=== PATIENT | male | born 1995 | race Two or more races ===

== ENCOUNTER 2022-03-02 20:56 | Emergency (ER) | payer OTHER ==
[~2022-03-02] VITALS: Ht 170.2 cm; Wt 77.0 kg
[2022-03-02 21:42] LABS: Basophils # (auto) 0 10 ^3/uL (0-0.2); Basophils % (auto) 0.5 % (0.0-2.0); Eosinophils # (auto) 0.1 10 ^3/uL (0-0.8); Eosinophils % (auto) 1.2 % (0.0-7.0); Hematocrit 45.8 % (41.0-53.0); Hemoglobin 15.3 g/dL (13.5-17.5); Lymphocytes # (auto) 1.9 10 ^3/uL (0.4-5.4); Lymphocytes % (auto) 34.1 % (10.0-50.0); Mean Corpuscular Hemoglobin 30.4 pg (28.0-32.0); Mean Corpuscular Hgb Conc. 33.5 g/dL (32.0-36.0); Mean Corpuscular Volume 90.8 fL (80.0-100.0); Monocytes # (auto) 0.5 10 ^3/uL (0-1.3); Monocytes % (auto) 9.2 % (0.0-12.0); Nucleated Red Blood Cells % 0.2 %; Red Blood Cells 5.05 10^6/uL (4.5-5.90); Red Cell Distribution Width 13.4 % (11.8-14.3); White Blood Cell 5.5 10^3/uL (4.4-10.8)
[2022-03-02 22:03] LABS: Albumin 4.4 g/dL (3.4-5.0); BUN/Creatinine Ratio 19.8; Calcium 9.6 mg/dL (8.5-10.1); Magnesium 2.2 mg/dL (1.6-2.6); Potassium 4.2 mmol/L (3.5-5.1)
[2022-03-02 22:06] LABS: Bilirubin, Total 0.4 mg/dL (0.2-1.0)
[2022-03-03 03:25] VITALS: BP 132/79
== END 2022-03-03 03:35 | disposition home or self-care (01) ==
LOC: ER 21:12
DX: R07.89 Other chest pain (principal); I10 Essential (primary) hypertension
CPT/HCPCS: 36415; 71046; 80053; 83735; 83880; 84484; 85025; 93005

== ENCOUNTER 2022-03-22 17:44 | Emergency (ER) | payer SELFPAY ==
[~2022-03-22] VITALS: Ht 172.7 cm; Wt 75.8 kg
[2022-03-22 20:22] VITALS: BP 130/92
== END 2022-03-22 20:30 | disposition home or self-care (01) ==
LOC: ER 17:44
DX: F41.9 Anxiety disorder, unspecified (principal); I10 Essential (primary) hypertension
CPT/HCPCS: 71046

== ENCOUNTER 2023-02-18 19:10 | Emergency (ER) | payer MEDICAID, OTHER ==
[~2023-02-18] VITALS: Ht 172.7 cm; Wt 84.0 kg
[2023-02-18 19:30] LABS: Basophils # (auto) 0 10 ^3/uL (0-0.2); Basophils % (auto) 0.4 % (0.0-2.0); Eosinophils # (auto) 0.1 10 ^3/uL (0-0.8); Eosinophils % (auto) 0.8 % (0.0-7.0); Lymphocytes # (auto) 2.6 10 ^3/uL (0.4-5.4); Mean Corpuscular Hemoglobin 30.2 pg (28.0-32.0); Mean Corpuscular Hgb Conc. 33.3 g/dL (32.0-36.0); Mean Corpuscular Volume 90.7 fL (80.0-100.0); Monocytes # (auto) 0.9 10 ^3/uL (0-1.3); Monocytes % (auto) 10.9 % (0.0-12.0); Neutrophils # (auto) 4.6 10 ^3/uL (1.6-8.6); Neutrophils % (auto) 55.9 % (37.0-80.0); Nucleated Red Blood Cells % 0.1 %; Red Blood Cells 4.96 10^6/uL (4.5-5.90); Red Cell Distribution Width 13.3 % (11.8-14.3); White Blood Cell 8.2 10^3/uL (4.4-10.8)
[2023-02-18 19:44] LABS: Alanine Aminotransferase 24 U/L (7-40); Albumin 5.1 g/dL (3.2-4.8); Alkaline Phosphatase 73 U/L (46-116); Anion Gap 8 (5-15); Aspartate Aminotransferase 23 U/L (13-40); BUN/Creatinine Ratio 14.4 (10.0-20.0); Bilirubin, Total 0.6 mg/dL (0.2-1.0); Blood Urea Nitrogen 13 mg/dL (9-23); Calcium 9.4 mg/dL (8.7-10.4); Carbon Dioxide 23 mmol/L (20-30); Chloride 105 mmol/L (98-107); Glucose 128 mg/dL (74-106); Magnesium 1.9 mg/dL (1.6-2.6); Potassium 3.7 mmol/L (3.5-5.1); Sodium 136 mmol/L (136-145); Total Protein 8.4 g/dL (5.7-8.2)
[2023-02-18 19:46] LABS: INR 1.08 (0.9-1.15); Partial Thromboplastin Time 29.4 SEC (24.5-34.5); Prothrombin Time 11.3 sec (9.3-11.8)
[2023-02-18 20:58] LABS: Amphetamine Screen, Urine Neg (NEGATIVE); Benzodiazephine Screen, Urine Neg (NEGATIVE)
[2023-02-18 20:59] LABS: Barbiturate Scree,Urine Neg (NEGATIVE); Cannabinoid Screen, Urine Pos (NEGATIVE); Cocaine Screen, Urine Neg (NEGATIVE); Opiate Scree,Urine Neg (NEGATIVE); Phencyclidine Screen, Urine Neg (NEGATIVE)
[2023-02-18 21:36] LABS: Urine Bacteria NONE SEEN /hpf (None Seen); Urine Blood Negative /uL (Negative); Urine Clarity Clear (Clear); Urine Color Colorless (Yellow); Urine Protein, UAD Negative (Negative); Urine Specific Gravity 1.016 (1.001-1.035); Urine Urobilinogen Normal (Negative); Urine WBC <1 /hpf (0 - 3)
[2023-02-19] MEDS ORDERED: ALPR0.5T PO (00:53)
[2023-02-19 01:35] VITALS: BP 143/98; PULSE 82; RESP 18; TEMP 97.9; O2SAT 99
== END 2023-02-19 01:37 | disposition home or self-care (01) ==
LOC: ER 19:10
DX: R00.2 Palpitations (principal); I10 Essential (primary) hypertension; Z88.8 Allergy status to other drugs, medicaments and biological substances; Z79.899 Other long term (current) drug therapy; Z86.2 Personal history of diseases of the blood and blood-forming organs and certain disorders involving the immune mechanism
CPT/HCPCS: 36415; 71045; 80053; 80307; 81001; 83735; 84484; 85025; 85610; 85730; 93005

== ENCOUNTER 2024-11-10 19:36 | Inpatient (IN) | payer MEDICAID ==
[~2024-11-10] VITALS: Ht 170.2 cm; Wt 70.0 kg
[~2024-11-10 19:36] MED LIST: ALPR0.5T PO
--- NOTE | 2024-11-10 19:52 | ED.PDOC ---
HPI Comments 29-year-old male presents with a chief complaint of chest pain x 2 days with associated arm tingling. Patient states that his pain is localized to his sternal region, nonradiating, nonexertional, and is intermittent in timing. Patient reports that he is also feeling tingling sensations in his bilateral arms. Patient mentions that he has been taking his medications as prescribed. PMHx: HTN, HLD PSHx: Denies Denies drugs or tobacco abuse. Denies family history of coronary artery disease HPI: Poor Historian. REVIEW OF SYSTEMS: CONSTITUTIONAL: Denies acute: fever, diaphoresis, chills, generalized weakness. HEAD: Denies acute: headache, photophobia Eyes: Denies acute: Double vision, vision loss, eye pain, eye discharge. EARS: Denies acute: tinnitus, hearing loss, ear discharge, ear pain, THROAT: Denies acute: sore throat, swelling, difficulty swallowing , pain with swallowing, change in voice. NECK: Denies acute: neck pain, neck swelling, stiff neck. HEART: Denies acute : palpitations, LUNGS: Denies acute: SOB, wheezing, cough, hemoptysis ABDOMEN: Denies acute: abdominal pain, Nausea, Vomiting, diarrhea, melena , hematemesis, hematochezia SKIN: Denies acute: rash, redness, lesions, itchiness. EXTREMITIES: Denies acute: calf pain, weakness, denies pain in extremity. Denies acute: Low back pain. Neuro: Denies acute: focal neurological deficit, motor or sensory focal neurological deficit, tremors, seizure like activity, confusion, dizziness, change in mental status, loss of bowel or bladder function, cauda equina like symptoms. : Denies acute: dysuria, hematuria, flank pain, increase in urinary frequency. PSYCH: Denies acute: hallucination, suicidal ideation, homicidal ideation. PHYSICAL EXAM: General: ----mild----acute distress, awake and alert. Head: normocephalic, atraumatic. Neck: supple, trachea is midline, no swelling. Throat: Normal phonation. Eyes:, no erythema, no purulent discharge, no proptosis, no icterus. Heart: regular rate, regular rhythm, no significant murmur appreciated. Lungs: no apparent respiratory distress, Able to speak in full sentences. No wheezing, no rhonchi, no crackles. No stridors Clear to auscultation bilaterally. Abdomen: non tender to palpation, non distended, soft, no guarding, no rebound, + bowel sounds. Neuro: Awake, Alert, oriented to name, self, situation, follows commands GCS=15. Speech is normal. Skin: no petechia, no purpura, no cyanosis, non-pale, not jaundice. Lower extremities: --no - Pitting edema no deformity, no focal swelling, no calf TTP. Makes eye contact. moves all four extremities. Face: no apparent facial droop. Ambulating in the ED independently. ED COURSE: DISCLAIMER: This medical document was created using an electronic medical record system with voice recognition software and computerized dictation system. Although this document has been carefully reviewed, there might still be some phonetic and typographical errors. Occasional wrong-word or "sound-alike" substitutions may have occurred due to the inherent limitations of voice recognition software. These areas are purely typographical due to imperfections of the software programs and do not reflect any compromise in the patient's medical care. Please read the chart carefully and recognize, using context, where these substitutions have occurred. Time Seen by MD: 19:46 Primary Care Provider: VÍCTOR Reviewed Notes: Medications, Allergies Allergies: Coded Allergies: Lisinopril (Verified Allergy, Unknown, 03/22/22) Losartan (Verified Allergy, Unknown, 03/22/22) Home Meds Active Scripts Alprazolam (Xanax) 0.5 Mg Tb, 1 TAB PO Q8HP PRN, #15 TAB Prov:SAM GARCIA PAC 02/19/23 Information Source: Patient Mode of Arrival: Ambulatory Past Medical History PAST MEDICAL HISTORY: High Lipids, HTN Surgical History: Denies all surgeries Family History Family History: Reviewed,noncontributory to illness Social History Smoker: Non-Smoker Alcohol: Denies ETOH Use Drugs: Denies Drug Use Lives In: Home Was a procedure done? Was a procedure done?: No CP Differential Dx Differential Diagnosis: N/A Differential Diagnosis: Other (Ddx include but not limitied to gastritis, musculoskeletal pain, radiculopathy, atypical chest pain, dissection, aneurysm, ACS, unstable angina, hiatal hernia, GERD, anxiety, costochondritis, PE, pneumothroax, neoplasm, cardiac ischemia, drug abuse, anemia.) X-Ray, Labs, Meds, VS Vital Signs Date Time Temp Pulse Resp B/P (MAP) Pulse Ox O2 Delivery O2 Flow Rate FiO2 11/10/24 20:55 84 11/10/24 20:22 123/62 11/10/24 20:13 98.5 96 19 123/88 (100) 99 98.5 11/10/24 20:12 99 17 99 Room Air* 0 21 11/10/24 20:00 98.3 101 18 131/84 99 98.3 11/10/24 19:42 101 Lab Test 11/10/24 21:00 11/10/24 20:59 11/10/24 20:01 Range/Units Urine Color Yellow Yellow Urine Clarity Clear Clear Urine pH 5.5 5.0-9.0 Urine Specific Hanna 1.015 1.001-1.035 Urine Protein Negative Negative Urine Ketones 3+ H Negative Urine Blood Negative Negative /uL Urine Nitrite Negative Negative Urine Bilirubin Negative Negative Urine Urobilinogen Normal Negative mg/dL Urine Leukocyte Esterase Negative Negative /uL Urine RBC None seen 0 - 3 /hpf Urine Microscopic WBC 1 0-3 /HPF Urine Squamous Epithelial Cells None seen <5 /hpf Urine Bacteria None seen None Seen /hpf Urine Mucus Few None Seen Urine Glucose Normal Normal mg/dL Urine Opiates Screen Neg NEGATIVE Urine Fentanyl Screen Neg NEGATIVE Urine Barbiturates Screen Neg NEGATIVE Urine Phencyclidine Screen Neg NEGATIVE Urine Amphetamines Screen Neg NEGATIVE Urine Benzodiazepines Screen Neg NEGATIVE Urine Cocaine Screen Neg NEGATIVE Urine Cannabinoids Screen Neg NEGATIVE D-Dimer, Quantitative 0.45 0.0-0.49 mg/L FEU Troponin I High Sensitivity 6 3 L </=54 ng/L White Blood Count 5.4 4.4-10.8 10^3/uL Red Blood Count 4.99 4.5-5.90 10^6/uL Hemoglobin 15.4 13.5-17.5 g/dL Hematocrit 44.9 41.0-53.0 % Mean Corpuscular Volume 90.0 80.0-100.0 fL Mean Corpuscular Hemoglobin 30.8 28.0-32.0 pg Mean Corpuscular Hemoglobin Concent 34.2 32.0-36.0 g/dL Red Cell Distribution Width 14.1 11.8-14.3 % Platelet Count 292 140-450 10^3/uL Mean Platelet Volume 7.1 6.9-10.8 fL Neutrophils (%) (Auto) 36.9 L 37.0-80.0 % Lymphocytes (%) (Auto) 52.0 H 10.0-50.0 % Monocytes (%) (Auto) 9.7 0.0-12.0 % Eosinophils (%) (Auto) 1.0 0.0-7.0 % Basophils (%) (Auto) 0.4 0.0-2.0 % Neutrophils # (Auto) 2.0 1.6-8.6 10 ^3/uL Lymphocytes # (Auto) 2.8 0.4-5.4 10 ^3/uL Monocytes # (Auto) 0.5 0-1.3 10 ^3/uL Eosinophils # (Auto) 0.1 0-0.8 10 ^3/uL Basophils # (Auto) 0 0-0.2 10 ^3/uL Nucleated Red Blood Cells 0.2 % Sodium Level 139 136-145 mmol/L Potassium Level 3.7 3.5-5.1 mmol/L Chloride Level 107 98-107 mmol/L Carbon Dioxide Level 18 L 20-31 mmol/L Anion Gap 14 5-15 Blood Urea Nitrogen 9 9-23 mg/dL Creatinine 0.95 0.700-1.30 mg/dL Glomerular Filtration Rate Calc 110 >90 mL/min BUN/Creatinine Ratio 9.5 L 10.0-20.0 Serum Glucose 97 74-106 mg/dL Lactic Acid Level 1.4 0.4-2.0 mmol/L Calcium Level 9.7 8.7-10.4 mg/dL Magnesium Level 2.0 1.6-2.6 mg/dL Total Bilirubin 0.9 0.2-1.0 mg/dL Aspartate Amino Transferase (AST) 31 13-40 U/L Alanine Aminotransferase (ALT) 46 H 7-40 U/L Alkaline Phosphatase 72 46-116 U/L B-Type Natriuretic Peptide 2.39 0-100 pg/mL Total Protein 8.1 5.7-8.2 g/dL Albumin 5.1 H 3.2-4.8 g/dL Current Medications Medications (Trade) Dose Ordered Sig/Jorge Luis Route Start Time Stop Time Status Last Admin Aspirin (Ecotrin Enteric Coated Tablet) 325 mg ONCE ONCE PO 11/10/24 20:00 11/10/24 20:01 DC 11/10/24 20:21 Sodium Chloride 1,000 ml @ 1,000 mls/hr Q1H ONCE IV 11/10/24 20:00 11/10/24 20:59 DC 11/10/24 20:21 PATIENT: JESSICA NEWMANT: [id number]: [id number] : 1995 LOC: ER ROOM / BED: / AGE / SEX: 29 / M ADM STATUS: REG ER SERVICE 47 ORDERING PHYSICIAN: ZAN ABEL DO PROCEDURE(s): CXRP - CHEST PORTABLE REASON: cp ORDER NUMBER(s): [id number], ACCESSION NUMBER(s): [id number] CHEST RADIOGRAPH Indication: cp Technique: Single frontal view of the chest was obtained COMPARISON: XY CHEST PORTABLE on DOS: 02/18/23 FINDINGS: Lines and Tubes: None Lungs: Clear Pleura: No pleural effusion or pneumothorax. Cardiomediastinal contours: Unremarkable IMPRESSION: No abnormality. ATED BY: JOAQUIN AWAN MD DICTATED DATE/TIME: 11/10/242010 SIGNED BY: JOAQUIN AWAN MD SIGNED DATE/TIME: 11/10/242010 Time of 1ST Reevaluation: 20:16 Reevaluation 1ST: Unchanged Patient Education/Counseling: Diagnosis, Treatment Family Education/Counseling: No Family Present Comments MDM: patient presented with the above HPI.--chest pain----workup was initiated. patient was found with the above mentioned diagnosis. the following medications were ordered: please refer to order lists of meds and tests obtained by myself Dr. Abel. Patient ED course and VS have been stabilized. Patient has been reassessed in t ED and remained in a stable condition. Pertinent incidental findings were discussed with the patient and/or family. Patient/family voices understanding and is agreeable with plan. Patient has been observed in the ED adequate length of time to insure improvement/stability. Escalation of care considered: Consideration of escalation to observation or admission Patient was ADMITTED to the medicine team for further evaluation and treatment of their presentation. All the reports of any imaging studies that were ordered by myself were reviewed by myself. Departure 1 Departure Time of Disposition: 20:00 Impression: Primary Impression: Chest pain Disposition: ADMITTED INPATIENT Admit to: Tele Condition: Guarded Discharged With: Self Critical Care Note Critical Care Time?: No Heart Score Heart Score: Heart Score Response (Comments) Value History Moderate Suspicious 1 EKG Normal 0 Age <45 0 Risk Factors 1 or 2 risk factors 1 Troponin Normal limit 0 Total 2 I personally scribed for ZAN ABEL DO ([email or web address]) on 11/10/24 at 19:52. Electronically submitted by Doug Calderon ([email or web address]). I personally scribed for ZAN ABEL DO ([email or web address]) on 11/10/24 at 20:26. Electronically submitted by Doug Calderon ([email or web address]). ZAN ABEL DO Nov 10, 2024 19:52
[2024-11-10 20:12] VITALS: PULSE 99; RESP 17; O2SAT 99
[2024-11-10 20:13] VITALS: BP 123/88; RESP 19; TEMP 98.5; O2SAT 99
--- NOTE | 2024-11-10 20:13 | DVH ---
CHEST RADIOGRAPH Indication: cp Technique: Single frontal view of the chest was obtained COMPARISON: XY CHEST PORTABLE on DOS: 02/18/23 FINDINGS: Lines and Tubes: None Lungs: Clear Pleura: No pleural effusion or pneumothorax. Cardiomediastinal contours: Unremarkable IMPRESSION: No abnormality.
[2024-11-10 20:16] LABS: Hematocrit 44.9 % (41.0-53.0); Hemoglobin 15.4 g/dL (13.5-17.5); Mean Corpuscular Hemoglobin 30.8 pg (28.0-32.0); Mean Corpuscular Volume 90.0 fL (80.0-100.0); Nucleated Red Blood Cells % 0.2 %
[2024-11-10] MEDS: ASPirin-EC 325mg tab PO ONE (20:21)
[2024-11-10] MEDS: SODIUM CHLORIDE 0.9% 1,000 ML IV ONE (20:21)
[2024-11-10] MEDS: NITROGLYCERIN 0.4 MG SL TAB SL ONE (20:22)
[2024-11-10 20:32] LABS: Alkaline Phosphatase 72 U/L (46-116); Anion Gap 14 (5-15); BUN/Creatinine Ratio 9.5 (10.0-20.0); Bilirubin, Total 0.9 mg/dL (0.2-1.0); Blood Urea Nitrogen 9 mg/dL (9-23); Calcium 9.7 mg/dL (8.7-10.4); Glucose 97 mg/dL (74-106); Magnesium 2.0 mg/dL (1.6-2.6); Potassium 3.7 mmol/L (3.5-5.1); Sodium 139 mmol/L (136-145); Total Protein 8.1 g/dL (5.7-8.2)
[2024-11-10 20:38] LABS: Alanine Aminotransferase 46 U/L (7-40); Albumin 5.1 g/dL (3.2-4.8); Carbon Dioxide 18 mmol/L (20-31); Chloride 107 mmol/L (98-107)
[2024-11-10 20:55] VITALS: PULSE 84
[2024-11-10 22:19] LABS: Urine Protein, UAD Negative (Negative)
[2024-11-10 22:23] LABS: Cannabinoid Screen, Urine Neg (NEGATIVE)
[2024-11-10 22:24] LABS: Amphetamine Screen, Urine Neg (NEGATIVE); Barbiturate Scree,Urine Neg (NEGATIVE); Benzodiazephine Screen, Urine Neg (NEGATIVE); Cocaine Screen, Urine Neg (NEGATIVE); Opiate Scree,Urine Neg (NEGATIVE); Phencyclidine Screen, Urine Neg (NEGATIVE)
[2024-11-10] MEDS ORDERED: MORPHINE SULFATE INJ 2 MG/ml SYRG IV PRN ×2 (23:00)
[2024-11-10] MEDS ORDERED: NITROGLYCERIN 0.4 MG SL TAB SL PRN (23:00)
--- NOTE | 2024-11-10 23:03 | DVHHPRES ---
History of Present Illness Resident Creating Document: KENZIE MERRITT History of Present Illness Aime Willard is a 29-year-old male patient who presents to ED with chief complaint of retrosternal tightness which radiated to bilateral upper extremities during exertion (patient was exercising, functional class I) which started at 6:30 p.m. on 11/11/2024, intensity 10/10, which lasted approximately 30 minutes, improved after receiving aspirin and IV fluids. Patient feels that couple of days previous to this episode he felt dehydrated and weak. Per patient he has been followed by overcoil stepper due to hypertension, he did complete echocardiogram which he recalls to be normal (there is no records on chart), he has completed coronary angiography or stress test study. Denies syncope, palpitation, dyspnea, and other associated symptoms. Past medical history: Hypertension, dyslipidemia. Surgical history: Denies Family history: Grandmother had heart disease (does not recall) at age 16 Social history: Lives in [place] with . 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 Allergies: Losartan and lisinopril Home medication: Amlodipine and atorvastatin Patient seen and examined at bedside. He currently denies any chest pain or any symptoms. Chest pain does not reproduce with palpation, or lying flat on bed. Past Medical History Per HPI Past Surgical History Per HPI Family History Per HPI Past Social History Per HPI Review of Systems Review of Systems Per HPI Allergies: Coded Allergies: Lisinopril (Verified Allergy, Unknown, 03/22/22) Losartan (Verified Allergy, Unknown, 03/22/22) Exam Vital Signs Vital Signs Date Time Temp Pulse Resp B/P (MAP) Pulse Ox O2 Delivery O2 Flow Rate FiO2 11/10/24 20:55 84 11/10/24 20:22 123/62 11/10/24 20:13 98.5 19 99 98.5 11/10/24 20:12 Room Air* 0 21 Exam Patient lying in bed, in no acute distress General: Lucid, afebrile, mucosae are moist Cardiovascular: Normal S1 and S2. No murmurs, gallops or rubs. No JVD. Respiratory: Normal ventilation mechanics. Clear lung sounds on auscultation Abdomen: Soft, nontender, no organomegaly, normal bowel sounds MSK/skin: Mobilizes 4 limbs. Skin is dry and warm. No chest pain on palpation. Neurological: Oriented in 3 spheres. No motor no sensitive deficits. Pupils are isocoric and reactive Labs/Xrays Labs Test 11/10/24 21:00 11/10/24 20:59 11/10/24 20:01 Range/Units Urine Color Yellow Yellow Urine Clarity Clear Clear Urine pH 5.5 5.0-9.0 Urine Specific Cassandra 1.015 1.001-1.035 Urine Protein Negative Negative Urine Ketones 3+ H Negative Urine Blood Negative Negative /uL Urine Nitrite Negative Negative Urine Bilirubin Negative Negative Urine Urobilinogen Normal Negative mg/dL Urine Leukocyte Esterase Negative Negative /uL Urine RBC None seen 0 - 3 /hpf Urine Microscopic WBC 1 0-3 /HPF Urine Squamous Epithelial Cells None seen <5 /hpf Urine Bacteria None seen None Seen /hpf Urine Mucus Few None Seen Urine Glucose Normal Normal mg/dL Urine Opiates Screen Neg NEGATIVE Urine Fentanyl Screen Neg NEGATIVE Urine Barbiturates Screen Neg NEGATIVE Urine Phencyclidine Screen Neg NEGATIVE Urine Amphetamines Screen Neg NEGATIVE Urine Benzodiazepines Screen Neg NEGATIVE Urine Cocaine Screen Neg NEGATIVE Urine Cannabinoids Screen Neg NEGATIVE D-Dimer, Quantitative 0.45 0.0-0.49 mg/L FEU Troponin I High Sensitivity 6 </=54 ng/L White Blood Count 5.4 4.4-10.8 10^3/uL Red Blood Count 4.99 4.5-5.90 10^6/uL Hemoglobin 15.4 13.5-17.5 g/dL Hematocrit 44.9 41.0-53.0 % Mean Corpuscular Volume 90.0 80.0-100.0 fL Mean Corpuscular Hemoglobin 30.8 28.0-32.0 pg Mean Corpuscular Hemoglobin Concent 34.2 32.0-36.0 g/dL Red Cell Distribution Width 14.1 11.8-14.3 % Platelet Count 292 140-450 10^3/uL Mean Platelet Volume 7.1 6.9-10.8 fL Neutrophils (%) (Auto) 36.9 L 37.0-80.0 % Lymphocytes (%) (Auto) 52.0 H 10.0-50.0 % Monocytes (%) (Auto) 9.7 0.0-12.0 % Eosinophils (%) (Auto) 1.0 0.0-7.0 % Basophils (%) (Auto) 0.4 0.0-2.0 % Neutrophils # (Auto) 2.0 1.6-8.6 10 ^3/uL Lymphocytes # (Auto) 2.8 0.4-5.4 10 ^3/uL Monocytes # (Auto) 0.5 0-1.3 10 ^3/uL Eosinophils # (Auto) 0.1 0-0.8 10 ^3/uL Basophils # (Auto) 0 0-0.2 10 ^3/uL Nucleated Red Blood Cells 0.2 % Sodium Level 139 136-145 mmol/L Potassium Level 3.7 3.5-5.1 mmol/L Chloride Level 107 98-107 mmol/L Carbon Dioxide Level 18 L 20-31 mmol/L Anion Gap 14 5-15 Blood Urea Nitrogen 9 9-23 mg/dL Creatinine 0.95 0.700-1.30 mg/dL Glomerular Filtration Rate Calc 110 >90 mL/min BUN/Creatinine Ratio 9.5 L 10.0-20.0 Serum Glucose 97 74-106 mg/dL Lactic Acid Level 1.4 0.4-2.0 mmol/L Calcium Level 9.7 8.7-10.4 mg/dL Magnesium Level 2.0 1.6-2.6 mg/dL Total Bilirubin 0.9 0.2-1.0 mg/dL Aspartate Amino Transferase (AST) 31 13-40 U/L Alanine Aminotransferase (ALT) 46 H 7-40 U/L Alkaline Phosphatase 72 46-116 U/L B-Type Natriuretic Peptide 2.39 0-100 pg/mL Total Protein 8.1 5.7-8.2 g/dL Albumin 5.1 H 3.2-4.8 g/dL SEPSIS Sepsis Screen Date sepsis recognized/suspect: Nov 10, 2024 Time Sepsis recognized/suspect: 1939 Recent Procedure: No On Antibiotic Therapy: No Respiratory Rate >20: No Heart Rate >90: No Temp<36 C (96.8 F) or >38.3 C: No SBP <90 or MAP <65 mmHG: No New Acute Mental Status Change: No Is the patient on CPAP, BIPAP,: No Physician Orders Book Author (11/10/24 ) Chest Portable (11/10/24 19:48) Electrocardigram (11/10/24 19:48) Troponin-I Hs (11/10/24 22:48) Electrocardigram (11/10/24 20:48) Electrocardigram (11/10/24 22:48) Admit (11/10/24 23:00) Code Status (11/10/24:) Vital Signs .PER UNIT PROTOCOL (11/10/24:00) Review Orders With Adm.Md (11/10/24:00) Notify Md Of Changes From Base (11/10/24:00) Advance Directive (11/10/24:00) Echo 2d Mode Cardiac Dop (11/10/24:00) Patient Condition (11/10/24:00) Allergies (11/10/24:00) Morphine 2mg Iv Q4hprn (11/10/24:00) Lovenox 40mg (11/11/24 10:00) Nitroglycerin Sublingual (Ntrostat Subli (11/10/24:00) Morphine Sulfate Injection (11/10/24:00) Oxygen By Nasal Cannula (11/10/24:00) Stat Ekg For Chest Pain (11/10/24:00) Notify Md Of Changes From Base (11/10/24:00) Director Of Enterprise Architecture For 24 Hours (11/10/24:00) Emergency Dysrhythmia Protocol (11/10/24:) Rhythm Strips Once Every Shift (11/10/24 23:00) Vital Signs Date Time Temp Pulse Resp B/P (MAP) Pulse Ox O2 Delivery O2 Flow Rate FiO2 11/10/24 20:55 84 11/10/24 20:22 123/62 11/10/24 20:13 98.5 96 19 123/88 (100) 99 98.5 11/10/24 20:12 99 17 99 Room Air* 0 21 11/10/24 20:00 98.3 101 18 131/84 99 98.3 11/10/24 19:42 101 Laboratory Tests Test 11/10/24 20:01 Lactic Acid Level 1.4 mmol/L (0.4-2.0) White Blood Count 5.4 10^3/uL (4.4-10.8) Medications Medications Dose Ordered Sig/Jorge Luis Route Start Time Stop Time Status Last Admin Dose Admin Aspirin 325 mg ONCE ONCE PO 11/10/24 20:00 11/10/24 20:01 DC 8/30/25 20:21 325 MG Sodium Chloride 1,000 ml @ 1,000 mls/hr Q1H ONCE IV 11/10/24 20:00 11/10/24 20:59 DC 11/10/24 20:21 1,000 MLS/HR Assessment/Plan Assessment/Plan # Chest pain of uncertain etiology # Rule out ACS # Ruled out PE Completed EKG which showed sinus tachycardia with no ST elevation, LVH (R-wave in AVF > 20mm), troponin x3 negative. Chest pain resolved with rest and aspirin. Ordered echocardiogram. Depending on results we will consult Cardiology D-dimer negative, ruled out pulmonary embolism Ordered inflammatory markers to rule out pericarditis (does not present brought nor pain when lying flat) # Ex polysubstance abuse Discussed continuation of cessation for over 16 minutes # Hypertension # Dyslipidemia Continue home medication (amlodipine and atorvastatin). Blood patient in hospital 123/88 mmHg. Patient was evaluated as outpatient for hypertension, probably ruled out secondary causes of hypertension. He is medicated as essential hypertension. Goals of care discussed with patient for over 18 minutes: Full code status Discussed plan with Dr. Casey, patient and nurses: Patient currently with no chest pain, we will complete echocardiogram to evaluate left ventricular ejection fraction in wall motility abnormalities. If findings are suggestive of ischemia, we will consult cardiology for further evaluation. Patient has findings suggestive of left ventricular hypertrophy on EKG. Plan discussed with: Patient, Other (Nurses) My Orders Orders - KENZIE MERRITT RESIDENT Procedure Category Date Status Time Admit ADMIT 11/10/24 Transmitted 23:00 Code Status CODE 11/10/24 Transmitted 23:00 Vital Signs [facility] 11/10/24 Transmitted 23:00 Review Orders With [facility] 11/10/24 Transmitted Adm. 23:00 Notify Of Changes [facility] 11/10/24 Transmitted From Base 23:00 Advance Directive [facility] 11/10/24 Transmitted 23:00 Echo 2d Mode Cardiac US 11/10/24 Transmitted DOP 23:00 Patient Condition ORDERS 11/10/24 Transmitted 23:00 Allergies [facility] 11/10/24 Transmitted 23:00 Morphine 2mg Iv Q4hprn [facility] 11/10/24 Transmitted 23:00 Lovenox 40mg [facility] 11/11/24 Transmitted 10:00 Nitroglycerin [facility] 11/10/24 Transmitted Sublingual (Ntrostat 23:00 Morphine Sulfate [facility] 11/10/24 Transmitted Injection 23:00 Oxygen By Nasal RT 11/10/24 Transmitted Cannula 23:00 Stat Ekg For Chest [facility] 11/10/24 Transmitted Pain 23:00 Notify Of Changes [facility] 11/10/24 Transmitted From Base 23:00 Director Of Enterprise Architecture For [facility] 11/10/24 Transmitted 24 Hours 23:00 Emergency Dysrhythmia [facility] 11/10/24 Transmitted Protocol 23:00 Rhythm Strips Once [facility] 11/10/24 Transmitted Every Shift 23:00 Date of Service: Nov 10, 2024 Billing Provider: MARIA CASEY MD Common Visit Codes: [id number] INP/OBS CARE (HIGH) Secondary Visit Codes: [id number] CARE PLAN 30 MINUTES KENZIE MERRITT RESIDENT Nov 10, 2024 23:03
--- NOTE | 2024-11-11 04:03 | DVHDSRES ---
Discharge Summary Date of Admission Resident Creating Document: KENZIE MERRITT RESIDENT Nov 10, 2024 at 23:00 Date of Discharge: Nov 11, 2024 Labs/Diagnostic Data: Laboratory Results Test 11/10/24 22:56 11/10/24 21:00 11/10/24 20:59 11/10/24 20:01 Troponin I High Sensitivity 3 ng/L (</=54) Urine Color Yellow (Yellow) Urine Clarity Clear (Clear) Urine pH 5.5 (5.0-9.0) Urine Specific [place] 1.015 (1.001-1.035) Urine Protein Negative (Negative) Urine Ketones 3+ (Negative) Urine Blood Negative /uL (Negative) Urine Nitrite Negative (Negative) Urine Bilirubin Negative (Negative) Urine Urobilinogen Normal mg/dL (Negative) Urine Leukocyte Esterase Negative /uL (Negative) Urine RBC None seen /hpf (0 - 3) Urine Microscopic WBC 1 /HPF (0-3) Urine Squamous Epithelial Cells None seen /hpf (<5) Urine Bacteria None seen /hpf (None Seen) Urine Mucus Few (None Seen) Urine Glucose Normal mg/dL (Normal) Urine Opiates Screen Neg (NEGATIVE) Urine Fentanyl Screen Neg (NEGATIVE) Urine Barbiturates Screen Neg (NEGATIVE) Urine Phencyclidine Screen Neg (NEGATIVE) Urine Amphetamines Screen Neg (NEGATIVE) Urine Benzodiazepines Screen Neg (NEGATIVE) Urine Cocaine Screen Neg (NEGATIVE) Urine Cannabinoids Screen Neg (NEGATIVE) D-Dimer, Quantitative 0.45 mg/L FEU (0.0-0.49) White Blood Count 5.4 10^3/uL (4.4-10.8) Red Blood Count 4.99 10^6/uL (4.5-5.90) Hemoglobin 15.4 g/dL (13.5-17.5) Hematocrit 44.9 % (41.0-53.0) Mean Corpuscular Volume 90.0 fL (80.0-100.0) Mean Corpuscular Hemoglobin 30.8 pg (28.0-32.0) Mean Corpuscular Hemoglobin Concent 34.2 g/dL (32.0-36.0) Red Cell Distribution Width 14.1 % (11.8-14.3) Platelet Count 292 10^3/uL (140-450) Mean Platelet Volume 7.1 fL (6.9-10.8) Neutrophils (%) (Auto) 36.9 % (37.0-80.0) Lymphocytes (%) (Auto) 52.0 % (10.0-50.0) Monocytes (%) (Auto) 9.7 % (0.0-12.0) Eosinophils (%) (Auto) 1.0 % (0.0-7.0) Basophils (%) (Auto) 0.4 % (0.0-2.0) Neutrophils # (Auto) 2.0 10 ^3/uL (1.6-8.6) Lymphocytes # (Auto) 2.8 10 ^3/uL (0.4-5.4) Monocytes # (Auto) 0.5 10 ^3/uL (0-1.3) Eosinophils # (Auto) 0.1 10 ^3/uL (0-0.8) Basophils # (Auto) 0 10 ^3/uL (0-0.2) Nucleated Red Blood Cells 0.2 % Sodium Level 139 mmol/L (136-145) Potassium Level 3.7 mmol/L (3.5-5.1) Chloride Level 107 mmol/L (98-107) Carbon Dioxide Level 18 mmol/L (20-31) Anion Gap 14 (5-15) Blood Urea Nitrogen 9 mg/dL (9-23) Creatinine 0.95 mg/dL (0.700-1.30) Glomerular Filtration Rate Calc 110 mL/min (>90) BUN/Creatinine Ratio 9.5 (10.0-20.0) Serum Glucose 97 mg/dL (74-106) Lactic Acid Level 1.4 mmol/L (0.4-2.0) Calcium Level 9.7 mg/dL (8.7-10.4) Magnesium Level 2.0 mg/dL (1.6-2.6) Total Bilirubin 0.9 mg/dL (0.2-1.0) Aspartate Amino Transferase (AST) 31 U/L (13-40) Alanine Aminotransferase (ALT) 46 U/L (7-40) Alkaline Phosphatase 72 U/L (46-116) B-Type Natriuretic Peptide 2.39 pg/mL (0-100) Total Protein 8.1 g/dL (5.7-8.2) Albumin 5.1 g/dL (3.2-4.8) Test 11/10/24 20:00 Thyroid Stimulating Hormone (TSH) 1.65 uIU/mL (0.55-4.78) Other Laboratory Tests 11/10/24 20:01 Brief Hx & Hospital Course: Aime Willard is a 29-year-old male patient who presents to ED with chief complaint of retrosternal tightness which radiated to bilateral upper extremities during exertion (patient was exercising, functional class I) which started at 6:30 p.m. on 11/11/2024, intensity 10/10, which lasted approximately 30 minutes, improved after receiving aspirin and IV fluids. Patient feels that couple of days previous to this episode he felt dehydrated and weak. 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 Denies syncope, palpitation, dyspnea, and other associated symptoms. Past medical history: Hypertension, dyslipidemia. Surgical history: Denies Family history: Grandmother had heart disease (does not recall) at age 16 Social history: Lives in [place] with . 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 Allergies: Losartan and lisinopril Home medication: Amlodipine and atorvastatin Brief hospital course: Likely anginal chest pain, in patient who presented exertional chest pain that responded to rest. Planning to rule out acute coronary syndrome, completed EKG which shows sinus tachycardia with no ST elevation in LVH, troponin x3 negative, pending echocardiogram. Patient decided to leave against medical advice before completing required work- up. Patient is lucid, oriented, in full capacity to make own decisions for himself. Patient understands risk of leaving against medical advice before completing requiring workup, including persistent angina, on coronal infarction and even . Patient takes full responsibility of his actions. Who was prompted to return to ER if symptoms showed up once again. DIAGNOSIS # Chest pain - probable angina # Rule out ACS # Ruled out PE # Ex polysubstance abuse # Hypertension # Dyslipidemia Goals of care discussed with patient for over 18 minutes: Full code status Discussed plan with Dr. Meraz, patient and nurses. Operations or Procedures CHEST RADIOGRAPH Indication: cp Technique: Single frontal view of the chest was obtained COMPARISON: XY CHEST PORTABLE on DOS: 02/18/23 FINDINGS: Lines and Tubes: None Lungs: Clear Pleura: No pleural effusion or pneumothorax. Cardiomediastinal contours: Unremarkable IMPRESSION: No abnormality. ATED BY: MARIA VICTORIA AWAN MD DICTATED DATE/TIME: 11/10/242010 Condition at Discharge: Undetermined Final Diagnosis/Problems List # Chest pain - probable angina # Rule out ACS # Ruled out PE # Ex polysubstance abuse # Hypertension # Dyslipidemia Discharge Disposition: AMA Discharge Instruct/Medications Scheduled PRN Alprazolam (Xanax), 1 TAB PO Q8HP PRN Discharge Statement: "Patient was advised to return to the ER or call 911 if any headaches, dizziness, shortness of breath, chest pain, abdominal pain, bleeding, fevers, or worsening of medical condition. Patient was counseled about treatment plan, medications, possible side effects, patientverbalized understanding. All questions were answered to the best of my ability. This discharge took greater then 30 minutes in planning, reviewing documentation, counseling the patient, and discussing with other team members." ASSESSMENT ASSESSMENT Assessment KENZIE MERRITT RESIDENT Nov 11, 2024 04:03
[2024-11-11] MEDS ORDERED: PANTOPRAZOLE 40 MG TAB PO SCH (06:00)
--- NOTE | 2024-11-11 07:09 | ECG ---
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
[2024-11-11] MEDS ORDERED: ENOXAPARIN SOD 40 MG/0.4 ML SYRINGE SC SCH (10:00)
[2024-11-11] MEDS ORDERED: ATORVASTATIN 20 MG TAB PO SCH (22:00)
--- NOTE | 2024-11-12 13:27 | ECG ---
[facility] Test Date: 2024-11-10 Test Time: 20:55:33 Pat Name: GINETTE NEWMAN Department: ED Room: [address] [place] [address] Gender: M Engineer: REUBEN : 1995 Requested By: ZAN ABEL Order Number: [id number] Reading MD: Measurements Intervals [place] Rate: 84 P: 36 [place]: 142 QRS: 76 QRSD: 103 T: 46 QT: 382 QTc: 452 Interpretive Statements Sinus rhythm Please click the below link to view image of tracing.
== END 2024-11-11 03:04 | disposition left against medical advice (07) | DRG 198 ==
LOC: ER 19:36 → OVERFLOW 23:00
PROVIDERS: ADMIT Student in an Organized Health Care Education/Training Program; ATTEND Emergency Medicine
DX: I20.9 Angina pectoris, unspecified (principal); E78.5 Hyperlipidemia, unspecified; I10 Essential (primary) hypertension; Z53.29 Procedure and treatment not carried out because of patient's decision for other reasons; F19.10 Other psychoactive substance abuse, uncomplicated; Z88.8 Allergy status to other drugs, medicaments and biological substances; Z82.49 Family history of ischemic heart disease and other diseases of the circulatory system
CPT/HCPCS: 36415; 71045; 80053; 80307; 81001; 82306; 82607; 83605; 83735; 83880; 84443; 84484; 85025; 85379; 93005; 96360; G0378

== ENCOUNTER 2024-11-11 20:19 | Emergency (ER) | payer MEDICAID ==
[~2024-11-11] VITALS: Ht 170.2 cm; Wt 70.5 kg
[2024-11-11 21:02] LABS: Hematocrit 41.7 % (41.0-53.0); Hemoglobin 14.7 g/dL (13.5-17.5); Mean Corpuscular Hemoglobin 31.3 pg (28.0-32.0); Mean Corpuscular Volume 89.1 fL (80.0-100.0); Nucleated Red Blood Cells % 0.1 %
--- NOTE | 2024-11-11 21:08 | ED.PDOC ---
History of Present Illness HPI Comments 29 y/o M, with a history of HTN and HLD, presents with c/c of nonradiating, sternal chest pain and shortness of breath. Patient endorses on returning to the ED for recurring symptoms following most recent ED visit, yesterday. Pain is described as tight in quality. No reported recent injuries, sick contact, travel, or further pertinent history. Denial of any nausea, vomiting, fever, chills, or further associated symptoms. Chief Complaint: Chest Pain Time Seen by MD: 20:30 Primary Care Provider: VÍCTOR Reviewed Notes: Nurses Notes, Medications, Allergies Allergies: Coded Allergies: Lisinopril (Verified Allergy, Unknown, 03/22/22) Losartan (Verified Allergy, Unknown, 03/22/22) Home Meds Active Scripts Alprazolam (Xanax) 0.5 Mg Tb, 1 TAB PO Q8HP PRN, #15 TAB Prov:SAM GARCIA Sathish PAC 02/19/23 Information Source: Patient Mode of Arrival: Ambulatory Past Medical History PAST MEDICAL HISTORY: High Lipids, HTN Surgical History: Denies all surgeries Family History Family History: Reviewed,noncontributory to illness Social History Smoker: Non-Smoker Alcohol: Denies ETOH Use Drugs: Denies Drug Use Lives In: Home All Other Systems: Reviewed and Negative (Comprehensive systems review obtained and negative except for what is stated in the HPI.) Physical Exam General Appearance: No Apparent Distress, Normal HEENT: Normal ENT Inspection, Pharynx Normal, TMs Normal Neck: Full Range of Motion, Non-Tender, Normal, Normal Inspection Respiratory: Chest Non-Tender, Lungs Clear, No Accessory Muscle Use, No Respiratory Distress, Normal Breath Sounds Cardiovascular: No Edema, No JVD, No Murmur, No Gallop, Normal Peripheral Pulses, Regular Rate/Rhythm Breast Exam: Deferred Gastrointestinal: No Organomegaly, Non Tender, No Pulsatile Mass, Normal Bowel Sounds, Soft Genitalia: Deferred Pelvic: Deferred Rectal: Deferred Extremities: No calf tenderness, Normal capillary refill, Normal inspection, Normal range of motion, Non-tender, No pedal edema Musculoskeletal : Apperance: Normal Neurologic: Alert, pie maker machine II-XII nml as Tested, No Motor Deficits, Normal Affect, Normal Mood, No Sensory Deficits Cerebellar Function: Normal Reflexes: Normal Skin: Dry, Normal Color, Warm Lymphatic: No Adenopathy Was a procedure done? Was a procedure done?: No EKG EKG : Pulse Rate (adult): 81 [place]: Normal Cardiac Rhythm: NSR Block: None Hypertrophy: None ST: Normal Differential Dx Considerations may include: TX, PE, ACS, URI, anxiety, angina, among others X-Ray, Labs, Meds, VS Vital Signs Date Time Temp Pulse Resp B/P (MAP) Pulse Ox O2 Delivery O2 Flow Rate FiO2 11/12/24 00:45 85 11/12/24 00:15 98.0 90 20 126/91 (103) 99 98.0 11/11/24 21:08 81 11/11/24 20:27 98.7 89 20 132/93 96 98.7 11/11/24 20:25 81 Lab Test 11/11/24 20:54 Range/Units White Blood Count 4.3 L 4.4-10.8 10^3/uL Red Blood Count 4.68 4.5-5.90 10^6/uL Hemoglobin 14.7 13.5-17.5 g/dL Hematocrit 41.7 41.0-53.0 % Mean Corpuscular Volume 89.1 80.0-100.0 fL Mean Corpuscular Hemoglobin 31.3 28.0-32.0 pg Mean Corpuscular Hemoglobin Concent 35.2 32.0-36.0 g/dL Red Cell Distribution Width 14.2 11.8-14.3 % Platelet Count 297 140-450 10^3/uL Mean Platelet Volume 6.9 6.9-10.8 fL Neutrophils (%) (Auto) 46.2 37.0-80.0 % Lymphocytes (%) (Auto) 41.1 10.0-50.0 % Monocytes (%) (Auto) 10.4 0.0-12.0 % Eosinophils (%) (Auto) 1.7 0.0-7.0 % Basophils (%) (Auto) 0.6 0.0-2.0 % Neutrophils # (Auto) 2.0 1.6-8.6 10 ^3/uL Lymphocytes # (Auto) 1.8 0.4-5.4 10 ^3/uL Monocytes # (Auto) 0.4 0-1.3 10 ^3/uL Eosinophils # (Auto) 0.1 0-0.8 10 ^3/uL Basophils # (Auto) 0 0-0.2 10 ^3/uL Nucleated Red Blood Cells 0.1 % Sodium Level 142 136-145 mmol/L Potassium Level 3.7 3.5-5.1 mmol/L Chloride Level 107 98-107 mmol/L Carbon Dioxide Level 24 20-31 mmol/L Anion Gap 11 5-15 Blood Urea Nitrogen 9 9-23 mg/dL Creatinine 0.96 0.700-1.30 mg/dL Glomerular Filtration Rate Calc 109 >90 mL/min BUN/Creatinine Ratio 9.4 L 10.0-20.0 Serum Glucose 99 74-106 mg/dL Calcium Level 9.8 8.7-10.4 mg/dL Magnesium Level 2.1 1.6-2.6 mg/dL Total Bilirubin 0.8 0.2-1.0 mg/dL Aspartate Amino Transferase (AST) 23 13-40 U/L Alanine Aminotransferase (ALT) 40 7-40 U/L Alkaline Phosphatase 67 46-116 U/L Troponin I High Sensitivity 3 L </=54 ng/L Total Protein 8.3 H 5.7-8.2 g/dL Albumin 4.9 H 3.2-4.8 g/dL [place] [id number] Ph: [phone] DIAGNOSTIC IMAGING Diagnostic Imaging Report : [id number] Signed PATIENT: GINETTE NEWMAN ACCT: [id number] UNIT: [id number] : 1995 LOC: ER ROOM / BED: / AGE / SEX: 29 / M ADM STATUS: REG ER SERVICE 38 ORDERING PHYSICIAN: KAYY MCDANIELS MD PROCEDURE(s): CXR1 - CHEST XRAY 1 VIEW REASON: chest pain ORDER NUMBER(s): [id number], ACCESSION NUMBER(s): [id number] CHEST RADIOGRAPH Indication: chest pain Technique: Single frontal view of the chest was obtained COMPARISON: XY CHEST PORTABLE on DOS: 11/10/24 FINDINGS: Lines and Tubes: None Lungs: Clear Pleura: No pleural effusion. No pneumothorax. Cardiomediastinal contours: Unremarkable IMPRESSION: No abnormality demonstrated. ATED BY: JOAQUIN AWAN MD DICTATED DATE/TIME: 11/11/242106 SIGNED BY: JOAQUIN AWAN MD SIGNED DATE/TIME: 11/11/242106 CC: Time of 1ST Reevaluation: 21:00 Reevaluation 1ST: Unchanged Patient Education/Counseling: Diagnosis, Treatment, Need For Follow Up Family Education/Counseling: No Family Present SEPSIS Sepsis Screen Date sepsis recognized/suspect: Nov 11, 2024 Time Sepsis recognized/suspect: 2030 Recent Procedure: No On Antibiotic Therapy: No Respiratory Rate >20: No Heart Rate >90: No Temp<36 C (96.8 F) or >38.3 C: No SBP <90 or MAP <65 mmHG: No New Acute Mental Status Change: No Is the patient on CPAP, BIPAP,: No Physician Orders Electrocardigram (11/11/24 20:30) Electrocardigram (11/11/24 21:30) Electrocardigram (11/11/24 23:30) Chest Xray 1 View (11/11/24 20:39) Vital Signs Date Time Temp Pulse Resp B/P (MAP) Pulse Ox O2 Delivery O2 Flow Rate FiO2 11/12/24 00:45 85 11/12/24 00:15 98.0 90 20 126/91 (103) 99 98.0 11/11/24 21:08 81 11/11/24 20:27 98.7 89 20 132/93 96 98.7 11/11/24 20:25 81 Laboratory Tests Test 11/11/24 20:54 White Blood Count 4.3 10^3/uL (4.4-10.8) L Departure 1 Departure Time of Disposition: 23:00 Impression: Primary Impression: Atypical chest pain Additional Impression: Palpitations Disposition: 01 HOME / SELF CARE / HOMELESS Condition: Stable Discharged With: Self Critical Care Note Critical Care Time?: No Stability Stability form required: No Heart Score Heart Score: Heart Score Response (Comments) Value History Slightly Suspicious 0 EKG Normal 0 Age <45 0 Risk Factors 1 or 2 risk factors 1 Troponin Normal limit 0 Total 1 I personally scribed for KAYY MCDANIELS MD ([email or web address]) on 11/11/24 at 21:08. Electronically submitted by Aiden Fraser ([email or web address]). I personally scribed for KAYY MCDANIELS MD ([email or web address]) on 11/11/24 at 21:20. Electronically submitted by Aiden Fraser [email or web address]). KAYY MCDANIELS MD Nov 11, 2024 21:08
[2024-11-11 21:17] LABS: Alanine Aminotransferase 40 U/L (7-40); Alkaline Phosphatase 67 U/L (46-116); Anion Gap 11 (5-15); BUN/Creatinine Ratio 9.4 (10.0-20.0); Bilirubin, Total 0.8 mg/dL (0.2-1.0); Blood Urea Nitrogen 9 mg/dL (9-23); Calcium 9.8 mg/dL (8.7-10.4); Carbon Dioxide 24 mmol/L (20-31); Glucose 99 mg/dL (74-106); Magnesium 2.1 mg/dL (1.6-2.6); Potassium 3.7 mmol/L (3.5-5.1); Sodium 142 mmol/L (136-145)
[2024-11-11 21:55] LABS: Albumin 4.9 g/dL (3.2-4.8); Chloride 107 mmol/L (98-107); Total Protein 8.3 g/dL (5.7-8.2)
[2024-11-12 00:15] VITALS: BP 126/91; RESP 20; TEMP 98; O2SAT 99
[2024-11-12 00:45] VITALS: PULSE 85
--- NOTE | 2024-11-13 10:33 | ECG ---
[facility] Test Date: 2024-11-11 Test Time: 20:25:52 Pat Name: GINETTE NEWMAN Department: ED Room: Gender: M Baker Head: kandis : 1995 Requested By: EMERGENCY EMERGENCY Order Number: [id number] Reading MD: Measurements Intervals [place] Rate: 81 P: 43 [place]: 134 QRS: 86 QRSD: 98 T: 37 QT: 358 QTc: 416 Interpretive Statements Sinus rhythm Please click the below link to view image of tracing.
== END 2024-11-12 00:41 | disposition home or self-care (01) ==
LOC: ER 20:19
DX: R07.2 Precordial pain (principal); R00.2 Palpitations; I10 Essential (primary) hypertension; E78.5 Hyperlipidemia, unspecified; Z88.8 Allergy status to other drugs, medicaments and biological substances; Z79.899 Other long term (current) drug therapy
CPT/HCPCS: 36415; 71045; 80053; 83735; 84484; 85025; 93005